=== PATIENT | female | born 1990 | race Caucasian/White ===

== ENCOUNTER 2020-04-13 11:17 | Emergency (ER) | payer OTHER ==
[~2020-04-13] VITALS: Ht 162.6 cm; Wt 117.7 kg
[2020-04-13 11:57] LABS: BASOPHILS % (AUTO) 1 % (0-1); EOSINOPHILS % (AUTO) 2 % (1-7); LYMPHOCYTES % (AUTO) 30 % (22-44); MEAN CORPUSCULAR HEMOGLOBIN 24.2 pg (27.0-34.8); MEAN CORPUSCULAR HGB CONC 31.2 g/dL (32.4-35.8); MEAN PLATELET VOLUME 7.4 fL (7.4-10.4); MONOCYTES % (AUTO) 9 % (2-9); NEUTROPHILS % (AUTO) 58 % (42-75); PLATELET COUNT 337 x10^3/uL (130-400); RED BLOOD COUNT 5.41 x10^6/uL (3.82-5.3); RED CELL DISTRIBUTION WIDTH 18.4 % (9.6-15.2)
[2020-04-13 12:02] LABS: MD NO
[2020-04-13 12:06] LABS: ALANINE AMINOTRANSFERASE 44 U/L (12-78); ALBUMIN 3.7 g/dL (3.4-5.0); ANION GAP 4 mmol/L (5-15); C-REACTIVE PROTEIN, QUANT 0.94 mg/dL (0.02-0.49); CALCIUM 8.7 mg/dL (8.5-10.1); CHLORIDE 109 mmol/L (98-107)
[2020-04-13 12:11] LABS: ALKALINE PHOSPHATASE 124 U/L (45-117); BILIRUBIN,TOTAL 0.1 mg/dL (0.2-1.0); CREATININE 0.76 mg/dL (0.55-1.02); TOTAL PROTEIN 7.8 g/dL (6.4-8.2)
[2020-04-13 12:42] LABS: D-DIMER (DIC) 0.53 ug/mlFEU (0.00-0.52); PROTIME 10.2 Seconds (9.6-11.5)
--- NOTE | 2020-04-13 12:44 | NUR ---
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
--- NOTE | 2020-04-13 13:46 | NUR ---
PT RESTING, OCCASIONAL DRY COUGH, NOT IN RESP DISTRESS
[2020-04-13] MEDS ORDERED: IBUPROFEN 600 MG TABLET ONE (14:00)
[2020-04-13] MEDS ORDERED: ONDANSETRON ODT 4 MG ONE (14:00)
[2020-04-13 14:33] VITALS: BP 133/87
[2020-04-13] MEDS ORDERED: IBUPROFEN 600 MG TABLET PO ONE (15:00)
[2020-04-13] MEDS ORDERED: ONDANSETRON ODT 4 MG PO ONE (15:00)
== END 2020-04-13 14:35 | disposition home or self-care (01) ==
LOC: ED 13:49
DX: U07.1 COVID-19 (principal); B34.9 Viral infection, unspecified; R00.0 Tachycardia, unspecified; I49.3 Ventricular premature depolarization; J45.909 Unspecified asthma, uncomplicated
CPT/HCPCS: 36415; 71045; 80053; 82728; 83605; 83615; 84145; 85025; 85049; 85379; 85384; 85610; 85730; 86140; 87040; 93005; 99285